=== PATIENT | female | born 1980 | race Two or more races ===

== ENCOUNTER 2025-06-23 10:24 | Emergency (ER) | payer OTHER ==
[~2025-06-23] VITALS: Ht 162.6 cm; Wt 60.8 kg
[2025-06-23] MEDS ORDERED: ZOLOFT25 MG PO (11:04)
[2025-06-23] MEDS ORDERED: ALLEGRA ALLERGY60 MG PO (11:04)
[2025-06-23] MEDS ORDERED: 0.9 % SODIUM CHLORIDE 1,000 ML IV ONE (11:30)
[2025-06-23] MEDS ORDERED: KETOROLAC TROMETHAMINE 30 MG VIAL IV ONE (11:30)
[2025-06-23 12:36] LABS: URINE APPEARANCE Clear; URINE BILIRRUBIN Negative (NEGATIVE); URINE BLOOD Negative; URINE COLOR Yellow; URINE GLUCOSE Negative (NEGATIVE); URINE KETONE Trace (NEGATIVE); URINE LEUKOCYTE Trace; URINE NITRATE Negative; URINE PROTEIN Negative (NEGATIVE); URINE UROBILINOGEN 0.2 E.U./dl
[2025-06-23 12:36] LABS: BASO % 0.5 % (0.1-1.2); EOS # 0.02 (0.04-0.54); EOS % 0.3 % (0.7-7.0); LYMPH # 1.54 (1.18-3.74); LYMPH % 20.5 % (19.3-53.1); MEAN PLATELET VOLUME 9.60 fl (9.4-12.4); MONO # 0.38 (0.24-0.82); MONO % 5.0 % (4.7-12.5); NEUT # 5.53 (1.56-6.13); NEUT % 73.4 % (34.0-71.1); RED CELL DISTRIBUTION WIDTH 12.9 % (11.6-14.4)
[2025-06-23 12:40] LABS: URINE BACTERIA 23.9 uL (0.0-1933); URINE EPITHELIAL CELLS 8.2 uL (0.0-38.8); URINE RBC 2.0 uL (0.0-20.8); URINE WBC 11.0 uL (0.0-23.2)
[2025-06-23 12:47] LABS: URINE CAST 0.00 uL (0.0-1.40)
[2025-06-23 12:52] LABS: INR 1.06
[2025-06-23 12:57] LABS: ALT/SGPT 11.0 U/L (12-78); AST/SGOT 22.0 U/L (15-37); BILIRUBIN TOTAL 0.42 mg/dL (0.3-1.2); BUN CREA RATIO 7.0 (7.0-25.0); CREATININE SERUM 0.83 mg/dL (0.55-1.02); GFR 74.01; GLOBULINA 3.5 G/DL (2.4-3.5); GLUCOSE FASTING 84.0 mg/dL (65-100); HCG QUANTITATIVE 2.0 mUI/mL (1-3); OSMOLALITY SERUM 276.0 MOSM/KG (275-295)
== END 2025-06-23 20:20 | disposition home or self-care (01) ==
LOC: ER 10:24
PROVIDERS: General Practice
DX: R10.2 Pelvic and perineal pain (principal); Z87.09 Personal history of other diseases of the respiratory system; Z85.528 Personal history of other malignant neoplasm of kidney